=== PATIENT | male | born 1945 | race Caucasian/White ===

== ENCOUNTER 2022-01-07 08:56 | Emergency (ER) | payer MEDICARE, OTHER ==
[~2022-01-07] VITALS: Ht 167.6 cm; Wt 99.8 kg
[2022-01-07] MEDS ORDERED: ACETAMINOPHEN ES 500 MG TABLET PO ONE (09:30)
--- NOTE | 2022-01-07 09:31 | NUR ---
REFUSED TYLENOL AWARE
[2022-01-07] MEDS ORDERED: ACETAMINOPHEN ES 500 MG TABLET ONE (09:35)
--- NOTE | 2022-01-07 09:45 | NUR ---
[facility] EMT AT BEDSIDE FOR WOUND CARE
[2022-01-07] MEDS ORDERED: HYDROCODONE/APAP 5/325MG TABLET ONE (10:18)
[2022-01-07] MEDS ORDERED: HYDROCODONE/APAP 5/325MG TABLET PO ONE (10:30)
[2022-01-07] MEDS ORDERED: HYDR-3972 PO (10:41)
--- NOTE | 2022-01-07 11:28 | NUR ---
Patient discharged to home in stable condition. Written and verbal after care instructions given. Patient verbalizes understanding of instruction.
[2022-01-07 11:29] VITALS: BP 126/72
== END 2022-01-07 11:29 | disposition home or self-care (01) ==
LOC: ER 09:18
DX: S51.811D Laceration without foreign body of right forearm, subsequent encounter (principal); S20.211A Contusion of right front wall of thorax, initial encounter; S60.212A Contusion of left wrist, initial encounter; I10 Essential (primary) hypertension; E11.9 Type 2 diabetes mellitus without complications; Z88.0 Allergy status to penicillin; X58.XXXD Exposure to other specified factors, subsequent encounter; W10.9XXA Fall (on) (from) unspecified stairs and steps, initial encounter; Y93.89 Activity, other specified; Y92.89 Other specified places as the place of occurrence of the external cause; Y99.8 Other external cause status
CPT/HCPCS: 99284; 71100; 73110; A6403

== ENCOUNTER 2022-01-13 09:45 | Emergency (ER) | payer MEDICARE, OTHER ==
[~2022-01-13] VITALS: Ht 167.6 cm; Wt 99.8 kg
[~2022-01-13 09:45] MED LIST: HYDR-3972 PO
[2022-01-13 09:53] VITALS: BP 122/66
[2022-01-13 10:11] LABS: BASOPHILS # (AUTO) 0.1 K/uL (0.0-0.2); BASOPHILS % (AUTO) 0.7 % (0.0-2.0); EOSINOPHILS % (AUTO) 3.1 % (0.0-6.0); HEMATOCRIT 41 % (39-51); HEMOGLOBIN 12.9 g/dL (13.5-17.5); LYMPHOCYTES # (AUTO) 2.4 K/uL (0.8-4.8); LYMPHOCYTES % (AUTO) 27.8 % (20.0-44.0); MEAN CORPUSCULAR HGB CONC 32 g/dl (31.0-36.0); MEAN CORPUSCULAR VOLUME 89 fL (80-96); MONOCYTES % (AUTO) 12.1 % (2.0-12.0); NEUTROPHILS # (AUTO) 4.9 K/uL (1.8-8.9); NEUTROPHILS % (AUTO) 56.3 % (43.0-81.0); PLATELET COUNT (AUTO) 232 K/uL (150-450); RED BLOOD CELL COUNT(AUTO) 4.59 MIL/uL (4.5-6.0); WHITE BLOOD COUNT (AUTO) 8.7 K/uL (4.3-11.0)
[2022-01-13 10:23] LABS: CALCIUM, SERUM 8.9 mg/dL (8.5-10.1); CARBON DIOXIDE 32 mmol/L (21-32); CHLORIDE 102 mmol/L (98-107); CREATININE 1.3 mg/dL (0.6-1.3); GLUCOSE 82 mg/dL (74-106); POTASSIUM 4.6 mmol/L (3.5-5.1); SODIUM SERUM 140 mmol/L (136-145); UREA NITROGEN, BLOOD 23 mg/dL (7-18)
[2022-01-13] MEDS ORDERED: NAPR-1164 PO (12:36)
== END 2022-01-13 14:08 | disposition home or self-care (01) ==
LOC: ER 09:49
DX: S52.044A Nondisplaced fracture of coronoid process of right ulna, initial encounter for closed fracture (principal); I10 Essential (primary) hypertension; E11.9 Type 2 diabetes mellitus without complications; Z88.0 Allergy status to penicillin; Z60.2 Problems related to living alone; Z79.899 Other long term (current) drug therapy; W18.30XA Fall on same level, unspecified, initial encounter; Y93.89 Activity, other specified; Y92.89 Other specified places as the place of occurrence of the external cause; Y99.8 Other external cause status
CPT/HCPCS: 36415; 71045-TC; 73030-TC; 73080-TC; 73200-TC; 73564-TC; 80048-TC; 84484-TC; 85025-TC